=== PATIENT | female | born 1970 | race Caucasian/White ===

== ENCOUNTER 2020-11-10 07:37 | Day surgery (SDC) | payer BC ==
[2020-11-05 11:14] LABS: BASOPHILS # (AUTO) 0.1 X10'3 (0-0.2); BASOPHILS % (AUTO) 0.8 % (0-1); EOSINOPHILS # (AUTO) 0.1 X10'3 (0-0.9); EOSINOPHILS % (AUTO) 1.4 % (0-6); LYMPHOCYTES # (AUTO) 1.5 X10'3 (1.1-4.8); LYMPHOCYTES % (AUTO) 21.9 % (21-51); MEAN CORPUSCULAR HGB CONC 33.7 g/dL (33.0-36.5); MEAN CORPUSCULAR VOLUME 86.1 FL (78-98); MEAN PLATELET VOLUME 7.4 FL (7.4-10.4); MONOCYTES # (AUTO) 0.5 X10'3 (0-0.9); MONOCYTES % (AUTO) 6.9 % (2-12); NEUTROPHILS # (AUTO) 4.7 X10'3 (1.8-7.7); PRE OP HEMATOCRIT 41.5 % (35.0-45.0); PRE OP PLATELET COUNT 306 X10'3 (140-440); RED BLOOD COUNT 4.82 X10'6 (4.20-5.60); RED CELL DISTRIBUTION WIDTH 13.1 % (11.5-14.5)
[2020-11-05 11:43] LABS: ALBUMIN 4.1 G/DL (3.4-5.0); ALBUMIN/GLOBULIN RATIO 0.9 (1.1-1.5); ALKALINE PHOSPHATASE 112 IU/L (46-116); BLOOD UREA NITROGEN 16 MG/DL (7-18); BUN/CREATININE RATIO 20.5 (6.6-38.0); CALCIUM 9.7 MG/DL (8.5-10.1); CHLORIDE 104 MMOL/L (99-107); CREATININE 0.78 MG/DL (0.40-0.90); PRE OP ALT 42 U/L (30-65); PRE OP ANION GAP 9 (8-16); PRE OP AST 29 U/L (10-37); PRE OP BILIRUB, TOTAL 0.4 MG/DL (0.0-1.0); PRE OP GLUCOSE 103 MG/DL (70-104); PRE OP POTASSIUM 4.4 MMOL/L (3.4-5.1); PRE OP SODIUM 141 MMOL/L (135-145); TOTAL CARBON DIOXIDE 27.8 MMOL/L (24-32); TOTAL PROTEIN 8.5 G/DL (6.4-8.2); eGFR 78 ML/MIN
[~2020-11-10] VITALS: Ht 167.6 cm; Wt 149.7 kg
[2020-11-10] VITALS (9 sets, daily range): BP systolic 131–150; BP diastolic 72–109
[~2020-11-10 07:37] MED LIST: ACET-1059 PO; APPLE CIDER VINEGAR PO; BEE POLLEN PO; BUPIVAcaine/PF 2.5mg/ml (0.25%) 10ml vial ONE; COQ10 PO; FISH OIL PO; LIDOcaine 0.5% (5mg/ml) 50ml vial ONE; MELO-102 PO; MULT-1085 PO; OMEP40CA13 PO; SERT100T PO; ceFAZolin inj. 3,000 MG in normal saline 100ml IV soln 100 ML IV ONE; famotidine 20mg tablet PO ONE; ringers solution, lacted 1,000 ML IV SCH
[2020-11-10] MEDS ORDERED: hydrALAZINE 20mg/ml inj. IV PRN (08:50)
[2020-11-10] MEDS ORDERED: ringers solution, lacted 1,000 ML IV SCH (08:50)
[2020-11-10] MEDS ORDERED: morphine 4 MG/ML inj SYRINge IV PRN (08:50)
[2020-11-10] MEDS ORDERED: ondansetron/PF 4mg/2ml inj IV PRN (08:50)
[2020-11-10] MEDS ORDERED: morphine 2 MG/ML inj. syringe IV PRN (08:50)
[2020-11-10] MEDS ORDERED: labetalol 20mg/4ml (5mg/ml) syringe IV PRN (08:50)
[2020-11-10] MEDS ORDERED: fentaNYL/PF 50MCG/1 ML 2ML syringe IV PRN ×2 (08:50)
[2020-11-10] MEDS ORDERED: fentaNYL/PF 50MCG/1 ML 2ML syringe ONE (10:41)
[2020-11-10] MEDS ORDERED: midazolam 1 mg/ML 2ml injection ONE (10:42)
[2020-11-10] MEDS ORDERED: propofol inj 20 ML IV ONE (10:57)
--- NOTE | 2020-11-10 11:05 | NUR ---
Received from OR via [facility] IN STABLE CONDITION , accompanied by Anesthesiologist DR. ARIAS and report given by Anesthesiolgist. PATIENT DENIES ANY PAIN AT THIS TIME Addendum: 11/10/20 at 1302 by Nayeli Patel RN Amended: Links added.
--- NOTE | 2020-11-10 13:08 | NUR ---
PATIENT DISCHARGED VIA WHEELCHAIR AFTER WRITTEN AND VERBAL DISCHARGE INSTRUCTIONS GIVEN. PATIENT GAVE VERBAL UNDERSTANDING OF INSTRUCTIONS. PATIENT LEFT FACILITY IN PRIVATE VEHICLE WITHOUT INCIDENT. Addendum: 11/10/20 at 1312 by Nayeli Patel RN Amended: Links added.
== END 2020-11-10 12:20 | disposition home or self-care (01) ==
LOC: PAS 07:37
PROVIDERS: ATTEND Orthopaedic Surgery Hand Surgery
DX: G56.01 Carpal tunnel syndrome, right upper limb (principal); M18.0 Bilateral primary osteoarthritis of first carpometacarpal joints; F41.9 Anxiety disorder, unspecified; K21.9 Gastro-esophageal reflux disease without esophagitis; E66.01 Morbid (severe) obesity due to excess calories; Z68.43 Body mass index [BMI] 50.0-59.9, adult; Z20.822 Contact with and (suspected) exposure to COVID-19; Z79.899 Other long term (current) drug therapy; Z98.890 Other specified postprocedural states; Z87.891 Personal history of nicotine dependence; Z98.51 Tubal ligation status
CPT/HCPCS: 29848; 36415; 80053; 82948; 85025; 93005; A6222; J0690; J2001; J2250; J2704; J3010; J3490; U0003; A4215; A6449; J7120

== ENCOUNTER 2020-12-08 05:43 | Day surgery (SDC) | payer BC ==
[2020-12-01 10:51] LABS: BASOPHILS # (AUTO) 0.1 X10'3 (0-0.2); BASOPHILS % (AUTO) 0.9 % (0-1); EOSINOPHILS # (AUTO) 0.2 X10'3 (0-0.9); EOSINOPHILS % (AUTO) 3.1 % (0-6); LYMPHOCYTES # (AUTO) 1.2 X10'3 (1.1-4.8); LYMPHOCYTES % (AUTO) 20.6 % (21-51); MEAN CORPUSCULAR HEMOGLOBIN 28.7 PG (27.0-31.0); MEAN CORPUSCULAR HGB CONC 32.7 g/dL (33.0-36.5); MEAN CORPUSCULAR VOLUME 87.7 FL (78-98); MEAN PLATELET VOLUME 7.4 FL (7.4-10.4); MONOCYTES # (AUTO) 0.5 X10'3 (0-0.9); MONOCYTES % (AUTO) 8.6 % (2-12); NEUTROPHILS # (AUTO) 3.9 X10'3 (1.8-7.7); NEUTROPHILS % (AUTO) 66.8 % (42-75); PRE OP HEMATOCRIT 41.3 % (35.0-45.0); PRE OP HEMOGLOBIN 13.5 g/dL (12.0-16.0); PRE OP PLATELET COUNT 315 X10'3 (140-440); RED BLOOD COUNT 4.71 X10'6 (4.20-5.60); RED CELL DISTRIBUTION WIDTH 13.4 % (11.5-14.5)
[2020-12-01 11:34] LABS: ALBUMIN 3.8 G/DL (3.4-5.0); ALKALINE PHOSPHATASE 114 IU/L (46-116); BLOOD UREA NITROGEN 20 MG/DL (7-18); BUN/CREATININE RATIO 29.4 (6.6-38.0); CHLORIDE 107 MMOL/L (99-107); CREATININE 0.68 MG/DL (0.40-0.90); PRE OP ALT 41 U/L (30-65); PRE OP ANION GAP 8 (8-16); PRE OP AST 29 U/L (10-37); PRE OP BILIRUB, TOTAL 0.3 MG/DL (0.0-1.0); PRE OP GLUCOSE 90 MG/DL (70-104); PRE OP POTASSIUM 4.2 MMOL/L (3.4-5.1); PRE OP SODIUM 143 MMOL/L (135-145); TOTAL CARBON DIOXIDE 28.3 MMOL/L (24-32); TOTAL PROTEIN 7.8 G/DL (6.4-8.2); eGFR > 90 ML/MIN
[~2020-12-08] VITALS: Ht 167.6 cm; Wt 148.7 kg
[~2020-12-08 05:43] MED LIST changes: -BUPIVAcaine/PF 2.5mg/ml (0.25%) 10ml vial ONE; -LIDOcaine 0.5% (5mg/ml) 50ml vial ONE; -ceFAZolin inj. 3,000 MG in normal saline 100ml IV soln 100 ML IV ONE; +ceFAZolin/D5W- 1GM premix 50 ML IV ONE; +cefazolin/dext.iso 2gm/100ml 100 ML IV ONE
[2020-12-08] MEDS ORDERED: BUPIVAcaine/PF 2.5 mg/ml (0.25%) 30ml vial ONE (06:39)
[2020-12-08] MEDS ORDERED: ondansetron/PF 4mg/2ml inj IV PRN (07:10)
[2020-12-08] MEDS ORDERED: morphine 4 MG/ML inj SYRINge IV PRN (07:10)
[2020-12-08] MEDS ORDERED: labetalol 20mg/4ml (5mg/ml) syringe IV PRN (07:10)
[2020-12-08] MEDS ORDERED: hydrALAZINE 20mg/ml inj. IV PRN (07:10)
[2020-12-08] MEDS ORDERED: morphine 2 MG/ML inj. syringe IV PRN (07:10)
[2020-12-08] MEDS ORDERED: fentaNYL/PF 50MCG/1 ML 2ML syringe IV PRN ×2 (07:10)
[2020-12-08] MEDS ORDERED: ringers solution, lacted 1,000 ML IV SCH (07:10)
[2020-12-08] MEDS ORDERED: LIDOcaine 0.5% (5mg/ml) 50ml vial ONE (07:13)
[2020-12-08 07:17] VITALS: BP 137/68
[2020-12-08 07:21] VITALS: BP 137/68
[2020-12-08] MEDS ORDERED: fentaNYL/PF 50MCG/1 ML 2ML syringe ONE ×2 (07:46→08:41)
[2020-12-08] MEDS ORDERED: MIDAZolam 1 MG/ML 5ML VIAL ONE ×2 (07:46→08:42)
[2020-12-08] MEDS ORDERED: ROPIVAcaine 0.5% (5mg/ml) 30ml vial ONE (07:47)
[2020-12-08] MEDS ORDERED: ketorolac trometh. 30mg/ml inj. ONE (08:29)
[2020-12-08] MEDS ORDERED: labetalol 20mg/4ml (5mg/ml) syringe IV ONE (08:38)
--- NOTE | 2020-12-08 09:10 | NUR ---
Received from OR via [facility] IN STABLE CONDITION , accompanied by Anesthesiologist and ONCOLOGY REP report given by Felisa. Addendum: 12/08/20 at 0948 by Nayeli Patel RN Amended: Links added.
[2020-12-08 09:22] VITALS: BP 159/112
[2020-12-08 09:30] VITALS: BP 90/60
[2020-12-08 09:40] VITALS: BP 111/66
[2020-12-08 09:50] VITALS: BP 103/69
--- NOTE | 2020-12-08 09:50 | NUR ---
PATIENT DISCHARGED HOME IN STABLE CONDITION VIA WHEELCHAIR AFTER WRITTEN AND VERBAL DISCHARGE INSTRUCTIONS GIVEN. PATIENT GAVE VERBAL UNDERSTANDING OF INSTRUCTIONS GIVEN. Addendum: 12/08/20 at 1021 by Nayeli Patel RN Amended: Links added.
== END 2020-12-08 09:50 | disposition home or self-care (01) ==
LOC: PAS 05:43
PROVIDERS: ATTEND Orthopaedic Surgery Hand Surgery
DX: G56.02 Carpal tunnel syndrome, left upper limb (principal); M18.0 Bilateral primary osteoarthritis of first carpometacarpal joints; Z20.822 Contact with and (suspected) exposure to COVID-19; F41.9 Anxiety disorder, unspecified; K21.9 Gastro-esophageal reflux disease without esophagitis; E66.01 Morbid (severe) obesity due to excess calories; Z68.43 Body mass index [BMI] 50.0-59.9, adult; Z98.51 Tubal ligation status; Z98.890 Other specified postprocedural states; Z87.891 Personal history of nicotine dependence; Z79.899 Other long term (current) drug therapy
CPT/HCPCS: 25310; 25447; 29848; 36415; 80053; 82948; 85025; J0690; J1885; J2001; J2250; J3010; J3490; J7120; U0003; A4215; A4618; A6449; A7000; J2795